=== PATIENT | male | born 1970 | race Caucasian/White ===

== ENCOUNTER 2024-11-06 16:54 | Emergency (ER) | payer MEDICAID ==
[~2024-11-06] VITALS: Ht 167.6 cm; Wt 68.0 kg
[2024-11-06 16:59] VITALS: O2SAT 99
[2024-11-06] MEDS: LIDOCAINE HCL 1% 20ML VIAL INFIL ONE (17:30)
[2024-11-06] MEDS: TETANUS, DIPHTHERIA, PERTUSSIS VAC/PF 0.5ML (>10YR OLD) IM ONE (17:33)
[2024-11-06] MEDS ORDERED: BACITRACIN ZINC OINT UDPKT TOP ONE (19:00)
[2024-11-06 19:02] VITALS: BP 128/79; PULSE 59; RESP 18; TEMP 37; O2SAT 99
== END 2024-11-06 19:03 | disposition home or self-care (01) ==
LOC: ER 16:54
DX: S61.210A Laceration without foreign body of right index finger without damage to nail, initial encounter (principal); Z98.890 Other specified postprocedural states; W26.9XXA Contact with unspecified sharp object(s), initial encounter; Y93.89 Activity, other specified; Y92.89 Other specified places as the place of occurrence of the external cause; Y99.8 Other external cause status
CPT/HCPCS: 99283; 73140; 90715; 12002; 90471; J3490

== ENCOUNTER 2024-11-08 14:20 | Emergency (ER) | payer MEDICAID ==
[~2024-11-08] VITALS: Ht 167.6 cm; Wt 68.0 kg
[2024-11-08 14:22] VITALS: O2SAT 99
[2024-11-08 14:28] VITALS: BP 129/81; PULSE 70; RESP 14; TEMP 36.7; O2SAT 100
== END 2024-11-08 16:42 | disposition left against medical advice (07) ==
LOC: ER 14:20
DX: S61.210D Laceration without foreign body of right index finger without damage to nail, subsequent encounter (principal); Z48.02 Encounter for removal of sutures; X58.XXXD Exposure to other specified factors, subsequent encounter